=== PATIENT | female | born 1955 | race Caucasian/White ===

== ENCOUNTER 2022-08-09 11:21 | Inpatient (IN) | payer MEDICARE ==
[~2022-08-09] VITALS: Ht 157.5 cm; Wt 72.6 kg
--- NOTE | 2022-08-09 11:44 | NUR ---
BIBS C/O "Started having abdominal pain yesterday. Have black stools this am". AMBULATORY, PLACED IN BED, AAOX4, BREATHIONG EVEN AND UNLABORED SATURATING AT 97%RA.
--- NOTE | 2022-08-09 12:07 | NUR ---
TAX CONSULTANT AT BEDSIDE
[2022-08-09 12:27] LABS: BASOPHILS % (AUTO) 0.3 % (0.0-2.0); EOSINOPHILS % (AUTO) 0.4 % (0.0-6.0); HEMATOCRIT 39 % (33-45); HEMOGLOBIN 13.1 g/dL (11.5-14.8); LYMPHOCYTES # (AUTO) 2.1 K/uL (0.8-4.8); LYMPHOCYTES % (AUTO) 24.2 % (20.0-44.0); MEAN CORPUSCULAR HGB CONC 34 g/dl (31.0-36.0); MEAN CORPUSCULAR VOLUME 91 fL (82-100); MONOCYTES # (AUTO) 0.6 K/uL (0.1-1.30); MONOCYTES % (AUTO) 7.3 % (2.0-12.0); NEUTROPHILS # (AUTO) 5.8 K/uL (1.8-8.9); NEUTROPHILS % (AUTO) 67.8 % (43.0-81.0); PLATELET COUNT (AUTO) 158 K/uL (150-450); WHITE BLOOD COUNT (AUTO) 8.6 K/uL (4.3-11.0)
[2022-08-09] MEDS ORDERED: PANTOPRAZOLE 80 MG in IV NS 0.9% 100 ML IV ONE (12:30)
[2022-08-09] MEDS ORDERED: PANTOPRAZOLE 80 MG in IV NS 0.9% 500 ML IV ONE (12:30)
[2022-08-09] MEDS ORDERED: IV NS 0.9% 1,000 ML BAG IV ONE (12:30)
[2022-08-09 12:34] LABS: CALCIUM, SERUM 9.3 mg/dL (8.5-10.1); CARBON DIOXIDE 29 mmol/L (21-32); CHLORIDE 102 mmol/L (98-107); CREATININE 0.7 mg/dL (0.6-1.3); GLUCOSE 117 mg/dL (74-106); POTASSIUM 3.5 mmol/L (3.5-5.1); SODIUM SERUM 138 mmol/L (136-145); UREA NITROGEN, BLOOD 13 mg/dL (7-18)
[2022-08-09 12:40] LABS: ALANINE AMINOTRANSFERASE 17 U/L (12-78); ALKALINE PHOSPHATASE 59 U/L (46-116); ASPARTATE AMINOTRANSFERASE 17 U/L (15-37); BILIRUBIN,DIRECT 0.2 mg/dL (0.0-0.2); BILIRUBIN,TOTAL 0.7 mg/dL (0.2-1.0); LIPASE 169 U/L (73-393); TOTAL PROTEIN, SERUM 7.6 g/dL (6.4-8.2)
--- NOTE | 2022-08-09 13:00 | NUR ---
No obvious distress. NO acute changes.Reclining in bed made aware of plan of care
--- NOTE | 2022-08-09 13:00 | NUR ---
PATIENT TAKEN TO CT VIA JEANINE
--- NOTE | 2022-08-09 14:13 | NUR ---
SWAB FOR COVID19 SENT TO LAB
[2022-08-09] MEDS ORDERED: MAGNESIUM HYDROXIDE 30 ML UDC PO PRN (14:30)
[2022-08-09] MEDS ORDERED: Z GUARD REMEDY 4 OZ OINT TP PRN (14:30)
[2022-08-09] MEDS ORDERED: ONDANSETRON HCL/PF 4 MG/2 ML VIAL IVP PRN (14:30)
[2022-08-09] MEDS ORDERED: MAG HYDROX/AL HYDROX/SIMETH 30 ML UDC PO PRN (14:30)
--- NOTE | 2022-08-09 17:00 | NUR ---
Status Quo. Await Room Assignment/admission
--- NOTE | 2022-08-09 18:17 | NUR ---
REPORT GIVEN TO STEPHENIE DIXON [id number] FOR KHUSHBOO
--- NOTE | 2022-08-09 19:30 | NUR ---
ADMISSION NOTE RECEIVED PATIENT ALREADY IN ROOM CAME IN AT AROUND 1840 PER REPORT. A/OX4. AT BEDSIDE. PATIENT DENIES PAIN AT THIS TIME. WISHES TO BE FULL CODE. PATENT IS NOT UP-TO-DATE WITH FLU AND PNEUMONIA VACCINE AND WOULD RATHER GET IT SOMEPLACE ELSE. PROTONIX DRIP RUNNING @52MLS/HR AT THIS TIME ON LEFT FOREARM #22G IV ACCESS. NEW ID BAND ON PATIENT, BELONGINGS CHECKED AND SIGNED FOR. ORIENTED IN THE UNIT AND THE USE OF CALL LIGHT. PATIENT'S AND 'S QUESTIONS AND CONCERN ANSWERED AT THIS TIME. SAFETY IN PLACE. PATIENT IS AMBULATORY WITH STEADY GAIT. WILL FOLLOW THROUGH DOCTOR'S ORDERS AND CONTINUE WITH PATIENT'S CARE PLAN.
[2022-08-09 20:00] VITALS: BP 142/80
[2022-08-10] MEDS: IV NS 0.9% 1,000 ML IV PRN ×2 (00:54→13:34)
[2022-08-10 06:44] LABS: BASOPHILS % (AUTO) 0.6 % (0.0-2.0); EOSINOPHILS % (AUTO) 0.5 % (0.0-6.0); HEMATOCRIT 35 % (33-45); HEMOGLOBIN 12.1 g/dL (11.5-14.8); LYMPHOCYTES # (AUTO) 2.2 K/uL (0.8-4.8); LYMPHOCYTES % (AUTO) 26.6 % (20.0-44.0); MEAN CORPUSCULAR HGB CONC 34 g/dl (31.0-36.0); MEAN CORPUSCULAR VOLUME 91 fL (82-100); MONOCYTES # (AUTO) 0.7 K/uL (0.1-1.30); MONOCYTES % (AUTO) 8.1 % (2.0-12.0); NEUTROPHILS # (AUTO) 5.2 K/uL (1.8-8.9); NEUTROPHILS % (AUTO) 64.2 % (43.0-81.0); PLATELET COUNT (AUTO) 148 K/uL (150-450); RED BLOOD CELL COUNT(AUTO) 3.88 MIL/uL (4.0-5.2); WHITE BLOOD COUNT (AUTO) 8.1 K/uL (4.3-11.0)
[2022-08-10 07:00] VITALS: BP 148/82
--- NOTE | 2022-08-10 07:28 | NUR ---
noc rn note needs attended. report given to Debo for continuity of care.
--- NOTE | 2022-08-10 07:40 | NUR ---
RN OPENING NOTE RECEIVED PATIENT IN BED, AO X 4. ABLE TO MAKE NEEDS KNOWN. PT IS ON RA BREATHING EVEN AND NONLABORED . NO S/S OF ACUTE DISTRESS. NO COMPLAINTS OF PAIN AT THIS TIME. IV ACCESS L FA #22G RUNNING NS @75ML/HR. FALL AND SAFETY MEASURES IN PLACE, BED ALARM ON, BED IS IN LOWEST AND LOCKED POSITION, CALL LIGHT AND TABLE WITHIN EASY REACH, SIDE RAILS UPX2. WILL CONTINUE TO MONITOR.
[2022-08-10 07:43] LABS: CALCIUM, SERUM 8.5 mg/dL (8.5-10.1); CREATININE 0.5 mg/dL (0.6-1.3); PHOSPHORUS 3.6 mg/dL (2.5-4.9); POTASSIUM 3.4 mmol/L (3.5-5.1)
[2022-08-10] MEDS: PANTOPRAZOLE 40 MG VIAL IV SCH (08:25)
[2022-08-10] MEDS ORDERED: POTASSIUM CHLORIDE 20 MEQ TAB.PRT.SR PO ONE (08:30)
[2022-08-10] MEDS: ACETAMINOPHEN 325 MG TABLET PO PRN ×2 (10:46→18:42)
[2022-08-10 16:00] VITALS: BP 135/77
--- NOTE | 2022-08-10 18:30 | NUR ---
RN CLOSING NOTE PATIENT IN BED, AO X 4. ABLE TO MAKE NEEDS KNOWN. PT IS ON RA BREATHING EVEN AND NONLABORED . NO S/S OF ACUTE DISTRESS. IV ACCESS L FA #22G RUNNING NS @75ML/HR. FALL AND SAFETY MEASURES IN PLACE, BED ALARM ON, BED IS IN LOWEST AND LOCKED POSITION, CALL LIGHT AND TABLE WITHIN EASY REACH, SIDE RAILS UPX2. WILL ENDORSE TO TABLE ASSEMBLER METAL FOR KHUSHBOO.
[2022-08-10 18:50] LABS: OCCULT BLOOD STOOL NEGATIVE (NEGATIVE)
--- NOTE | 2022-08-10 19:45 | NUR ---
MSRN FULLY AWAKE, NO SOB, NO ACTIVE BLEEDING. STATED NOT BLEEDING SINCE SHE WAS ADMITTED. PRESENT IVF INFUSING WELL. ALL NEEDS MADE. CONTINUED.
[2022-08-10 20:00] VITALS: BP 119/68
[2022-08-10 22:00] VITALS: BP 119/68
[2022-08-11] MEDS: ACETAMINOPHEN 325 MG TABLET PO PRN ×2 (00:59→09:28)
[2022-08-11] MEDS: IV NS 0.9% 1,000 ML IV PRN (00:59)
--- NOTE | 2022-08-11 01:00 | NUR ---
MSRN VERBALIZES HEADACHE. TYLENOL 650 MG PO ADMINISTERED. BEDREST EMPHASIZED.
--- NOTE | 2022-08-11 06:27 | NUR ---
MSRN REMAINS UNCHANGE, STABLE FOR NOW.
[2022-08-11 07:06] LABS: BASOPHILS % (AUTO) 0.4 % (0.0-2.0); EOSINOPHILS % (AUTO) 2.1 % (0.0-6.0); HEMATOCRIT 35 % (33-45); HEMOGLOBIN 12.1 g/dL (11.5-14.8); LYMPHOCYTES # (AUTO) 2.7 K/uL (0.8-4.8); MEAN CORPUSCULAR HGB CONC 35 g/dl (31.0-36.0); MEAN CORPUSCULAR VOLUME 90 fL (82-100); MONOCYTES # (AUTO) 0.5 K/uL (0.1-1.30); MONOCYTES % (AUTO) 6.8 % (2.0-12.0); NEUTROPHILS # (AUTO) 3.5 K/uL (1.8-8.9); NEUTROPHILS % (AUTO) 51.7 % (43.0-81.0); PLATELET COUNT (AUTO) 148 K/uL (150-450); WHITE BLOOD COUNT (AUTO) 6.9 K/uL (4.3-11.0)
[2022-08-11 07:48] LABS: CREATININE 0.6 mg/dL (0.6-1.3); POTASSIUM 3.6 mmol/L (3.5-5.1)
[2022-08-11 08:00] VITALS: BP 144/88
[2022-08-11] MEDS: PANTOPRAZOLE 40 MG VIAL IV SCH (08:40)
[2022-08-11] MEDS ORDERED: FAMO-131 PO (08:42)
--- NOTE | 2022-08-11 10:35 | NUR ---
ASSEMBLY LOADER NOTE PATIENT DISCHARGE IN STABLE MEDICAL CONDITION. A/OX4. VS TAKEN, STABLE AND RECORDED. NO IV ACCESS. NAME ARM BAND REMOVED. SKIN ASSESSMENT DONE AND IS INTACT. ALL BELONGINGS CHECKED AND SIGNED. HEALTH TEACHING AND DISCHARGE INSTRUCTION GIVEN TO THE PATIENT. DISCUSSED PRESCRIPTION WITH PATIENT. PATIENT LEFT AMBULATORY WITH NO SIGN OF DISTRESS, WITH HER FAMILY, ACCOMPANIED BY RN TO THE LOBBY. CHARGE NURSE AWARE OF DISCHARGE
[2022-08-12] MEDS ORDERED: PANTOPRAZOLE 40 MG/PACK PACK PO SCH (07:30)
== END 2022-08-11 11:30 | disposition home or self-care (01) | DRG 392 ==
LOC: ER 11:28 → TELE 18:00 → MED 19:16
PROVIDERS: ADMIT Internal Medicine; ATTEND Internal Medicine
DX: K29.70 Gastritis, unspecified, without bleeding (principal); Z20.822 Contact with and (suspected) exposure to COVID-19; E87.6 Hypokalemia; R11.2 Nausea with vomiting, unspecified
CPT/HCPCS: 36415; 71045-TC; 80048-TC; 80076-TC; 82272-TC; 83690-TC; 83735-TC; 84100-TC; 84484-TC; 85025-TC; 87081-TC; C9113; C9803; G0378; J7030; J7040